=== PATIENT | male | born 1960 | race Caucasian/White ===

== ENCOUNTER 2025-02-26 23:16 | Emergency (ER) | payer BC, OTHER ==
[~2025-02-26] VITALS: Ht 182.9 cm; Wt 65.9 kg
[2025-02-27] MEDS: TETANUS/DIPHTH/ACEL. PERTUSSIS 0.5 ML SYR IM.IMMUN ONE (01:30)
[2025-02-27 02:30] VITALS: BP 130/74; TEMP 97.3; O2SAT 96
== END 2025-02-27 02:32 | disposition home or self-care (01) ==
LOC: M ED 23:16
DX: S43.102A Unspecified dislocation of left acromioclavicular joint, initial encounter (principal); S50.312A Abrasion of left elbow, initial encounter; W19.XXXA Unspecified fall, initial encounter; Y92.410 Unspecified street and highway as the place of occurrence of the external cause; Y93.55 Activity, bike riding; Y99.9 Unspecified external cause status